=== PATIENT | female | born 1955 | race Caucasian/White ===

== ENCOUNTER 2016-12-28 04:20 | Inpatient (IN) | payer MEDICAID ==
[2016-12-28] VITALS (16 sets, daily range): BP systolic 96–149; BP diastolic 60–94; PULSE 99–124; RESP 16–20; TEMP 97.8–100.9; O2SAT 97–100
[~2016-12-28] VITALS: Ht 160 cm; Wt 44.4 kg
[~2016-12-28 04:20] MED LIST: GUAI100S5 PO; LORA-392 PO; NALOXONE HCL 0.4 MG/ML AMP IV PUSH PRN; SODIUM CHLORIDE 0.9% FLUSH 10 ML FLUSH IV FLUSH PRN; VENTAER INH; ZOFR4TAB3 SL
[2016-12-28] MEDS: SODIUM CHLOR 0.9% 1000 ML INJ 1,000 ML IV SCH ×3 (04:45→23:32)
[2016-12-28] MEDS ORDERED: ATOR10TA15 PO (06:21)
[2016-12-28 08:51] LABS: AUTOMATED NEUTROPHIL # 3.1 TH/MM3 (1.8-7.7); BASOPHIL % 0.6 % (0.0-2.0); EOSINOPHIL # 0.1 TH/MM3 (0-0.4); EOSINOPHIL % 1.9 % (0.0-4.0); LYMPH % 33.8 % (9.0-44.0); LYMPHOCYTE # 1.9 TH/MM3 (1.0-4.8); MEAN CELL VOLUME 94.3 FL (80.0-100.0); MEAN CORPUSCULAR HEMOGLOBIN 31.8 PG (27.0-34.0); MEAN CORPUSCULAR HGB CONC 33.7 % (32.0-36.0); MONO % 6.9 % (0.0-8.0); NEUT % 56.8 % (16.0-70.0); PLATELET COUNT 86 TH/MM3 (150-450); RED BLOOD COUNT 2.09 MIL/MM3 (4.00-5.30); RED CELL DISTRIBUTION WIDTH 12.8 % (11.6-17.2); WHITE BLOOD COUNT 5.5 TH/MM3 (4.0-11.0)
[2016-12-28 08:52] LABS: HEMO FLAGS AUTO DIFF
[2016-12-28 08:55] LABS: HEMATOCRIT 19.7 % (35.0-46.0)
[2016-12-28] MEDS: SODIUM CHLORIDE 0.9% FLUSH 10 ML FLUSH IV FLUSH SCH ×2 (09:00→21:27)
[2016-12-28 09:13] LABS: PLATELET ESTIMATE SMEAR LOW (NORMAL); PLATELET MORPHOLOGY NORMAL (NORMAL); SCAN/DIFF AUTO DIFF CONFIRMED
[2016-12-28] MEDS ORDERED: SODIUM CHLOR 0.9% 250 ML INJ 250 ML IV ONE (12:00)
[2016-12-28] MEDS: diphenhydrAMINE HCL 25 MG CAP PO PRN ×2 (13:17→17:39)
[2016-12-28] MEDS: ACETAMINOPHEN 325 MG TAB PO PRN ×2 (13:17→17:39)
--- NOTE | 2016-12-28 14:59 | HHI.HP ---
[facility] Miguel Bangura D.O. Admission Diagnosis Diagnoses: Chief Complaint: nose bleed Travel History International Travel<30 Days: No Contact w/Intl Traveler <30 Da: No Traveled to Known Affected Are: No History of Present Illness Patient seen in [place] ED for 3 days of epistaxis. SHe had the nose packed but continued to bleed and became light headed and dizzy. She became hypotensive and tachycardic and was admitted to the hospital. She had been coughing and had rhinorrhea for two weeks after her daughter with whom she lives also had a virus. She has over 4o pack years of tobacco. She also admits taking Aspirin/bc powders in large quantities due to severe joint pain. She was admitted to the hospital for further evaluation. Review of Systems Constitutional: DENIES: Diaphoretic episodes, Fatigue, Fever, Weight gain, Weight loss, Chills, Dizziness, Change in appetite, Night Sweats Endocrine: DENIES: Abnorml menstrual pattern, Heat/cold intolerance, Polydipsia , Polyuria, Polyphagia Eyes: DENIES: Blurred vision, Diplopia, Eye inflammation, Eye pain, Vision loss , Photosensitivity, Double Vision Ears, nose, mouth, throat: COMPLAINS OF: Epistaxis, DENIES: Tinnitus, Hearing loss, Vertigo, Nasal discharge, Oral lesions, Throat pain, Hoarseness, Ear Pain , Running Nose, Sinus Pain, Toothache, Odynophagia Respiratory: COMPLAINS OF: Cough Cardiovascular: DENIES: Chest pain, Palpitations, Syncope, Dyspnea on Exertion , PND, Lower Extremity Edema, Orthopnea, Claudication Gastrointestinal: DENIES: Abdominal pain, Black stools, Bloody stools, Constipation, Diarrhea, Nausea, Vomiting, Difficulty Swallowing, Anorexia Genitourinary: DENIES: Abnormal vaginal bleeding, Dysmenorrhea, Dyspareunia, Sexual dysfunction, Urinary frequency, Urinary incontinence, Urgency, Hematuria , Dysuria, Nocturia, Vaginal discharge Musculoskeletal: COMPLAINS OF: Joint pain, DENIES: Muscle aches, Stiffness, Back pain, Neck pain Integumentary: DENIES: Abnormal pigmentation, Pruritus, Rash, Nail changes, Breast masses, Breast skin changes, Nipple discharge Hematologic/lymphatic: DENIES: Bruising, Lymphadenopathy Immunologic/allergic: DENIES: Eczema, Urticaria Neurologic: DENIES: Abnormal gait, Headache, Localized weakness, Paresthesias, Seizures, Speech Problems, Tremor, Poor Balance Psychiatric: DENIES: Anxiety, Confusion, Mood changes, Depression, Hallucinations, Agitation, Suicidal Ideation, Homicidal Ideation, Delusions Past Family Social History Past Medical History copd hyperlipidemia Past Surgical History none Reported Medications reviewed in the EMR, also BC powders "all day" Allergies: Coded Allergies: No Known Allergies (Unverified , 12/28/16) Active Ordered Medications reviewed in the emr Family History Father from [place] in his 70's mom had lung ca and htn Social History tobacco 30 years at at least a ppd occ etoh Physical Exam Vital Signs Vital Signs Date Time Temp Pulse Resp B/P (MAP) Pulse Ox O2 Delivery O2 Flow Rate FiO2 12/28/16 14:37 99.9 100 18 100/72 100 12/28/16 14:07 99.0 107 18 99/65 98 12/28/16 13:52 98.9 119 18 98/63 99 12/28/16 13:37 98.2 119 18 100/60 12/28/16 08:32 110 12/28/16 08:00 99.3 116 18 102/73 (83) 97 12/28/16 05:00 110 12/28/16 05:00 97.8 124 18 96/66 (76) 100 Physical Exam GENERAL: This is a well-nourished, well-developed patient, in no apparent distress. SKIN: No rashes, there are scattered ecchymoses, no lesions. Cool and dry. HEAD: Atraumatic. Normocephalic. No temporal or scalp tenderness. EYES: Pupils equal round and reactive. Extraocular motions intact. No scleral icterus. No injection or drainage. ENT: right nares packed, Nose with dried bleeding, no purulent drainage or septal hematoma. Throat without erythema, tonsillar hypertrophy or exudate. Uvula midline. Airway patent. NECK: Trachea midline. No JVD or lymphadenopathy. Supple, nontender, no meningeal signs. CARDIOVASCULAR: Regular rate and rhythm without murmurs, gallops, or rubs. RESPIRATORY: Clear to auscultation. Breath sounds equal bilaterally. No wheezes , rales, or rhonchi. GASTROINTESTINAL: Abdomen soft, non-tender, nondistended. No hepato-splenomegaly , or palpable masses. No guarding. MUSCULOSKELETAL: Extremities without clubbing, cyanosis, or edema. No joint tenderness, effusion, or edema noted. No calf tenderness. Negative Homans sign bilaterally. NEUROLOGICAL: Awake and alert. Cranial nerves II through XII intact. Motor and sensory grossly within normal limits. Five out of 5 muscle strength in all muscle groups. Normal speech. Laboratory Laboratory Tests Test 12/28/16 08:00 White Blood Count 5.5 Red Blood Count 2.09 Hemoglobin 6.6 Hematocrit 19.7 Mean Corpuscular Volume 94.3 Mean Corpuscular Hemoglobin 31.8 Mean Corpuscular Hemoglobin Concent 33.7 Red Cell Distribution Width 12.8 Platelet Count 86 Mean Platelet Volume 9.2 Neutrophils (%) (Auto) 56.8 Lymphocytes (%) (Auto) 33.8 Monocytes (%) (Auto) 6.9 Eosinophils (%) (Auto) 1.9 Basophils (%) (Auto) 0.6 Neutrophils # (Auto) 3.1 Lymphocytes # (Auto) 1.9 Monocytes # (Auto) 0.4 Eosinophils # (Auto) 0.1 Basophils # (Auto) 0.0 CBC Comment AUTO DIFF Differential Comment AUTO DIFF CONFIRMED Platelet Estimate LOW Platelet Morphology Comment NORMAL Result Diagram: 12/28/16 0800 Imaging 12/27 cxray, abd xray wnl on my review Course transferred form [place] ed Caprini VTE Risk Assessment Caprini VTE Risk Assessment: Mod/High Risk (score >= 2) VTE Pharm Contraindication: Hemorrhage Caprini Risk Assessment Model Point Value = 1 Point Value = 2 Point Value = 3 Point Value = 5 Age 41-60 Minor surgery BMI > 25 kg/m2 Swollen legs Varicose veins or History of unexplained or recurrent spontaneous Oral contraceptives or hormone replacement Sepsis (< 1 month) Serious lung disease, including pneumonia (< 1 month) Abnormal pulmonary function Acute myocardial infarction Congestive heart failure (< 1 month) History of inflammatory bowel disease Medical patient at bed rest Age 61-74 Arthroscopic surgery Major open surgery (> 45 min) Laparoscopic surgery (> 45 min) Malignancy Confined to bed (> 72 hours) Immobilizing plaster cast Central venous access Age >= 75 History of VTE Family history of VTE Factor V Leiden Prothrombin [id number] Lupus anticoagulant Anticardiolipin antibodies Elevated serum homocysteine Heparin-induced thrombocytopenia Other congenital or acquired thrombophilia Stroke (< 1 month) Elective arthroplasty Hip, pelvis, or leg fracture Acute spinal cord injury (< 1 month) Prophylaxis Regimen Total Risk Factor Score Risk Level Prophylaxis Regimen 0-1 Low Early ambulation 2 Moderate Order ONE of the following: *Sequential Compression Device (SCD) *Heparin 5000 units SQ BID 3-4 Higher Order ONE of the following medications: *Heparin 5000 units SQ TID *Enoxaparin/Lovenox 40 mg SQ daily (WT < 150 kg, CrCl > 30 mL/min) *Enoxaparin/Lovenox 30 mg SQ daily (WT < 150 kg, CrCl > 10-29 mL/min) *Enoxaparin/Lovenox 30 mg SQ BID (WT < 150 kg, CrCl > 30 mL/min) AND/OR *Sequential Compression Device (SCD) 5 or more Highest Order ONE of the following medications: *Heparin 5000 units SQ TID (Preferred with Epidurals) *Enoxaparin/Lovenox 40 mg SQ daily (WT < 150 kg, CrCl > 30 mL/min) *Enoxaparin/Lovenox 30 mg SQ daily (WT < 150 kg, CrCl > 10-29 mL/min) *Enoxaparin/Lovenox 30 mg SQ BID (WT < 150 kg, CrCl > 30 mL/min) AND *Sequential Compression Device (SCD) Assessment and Plan Problem List: (1) Epistaxis ICD Code: R04.0 - Epistaxis Plan: Acute likely posterior bleed, may be due to large aspirin doses coags normal ent eval pending, case discussed with Dr. Rodriguez and Family and weed control inspector NPO (2) Anemia ICD Code: D64.9 - Anemia, unspecified Plan: due to acute blood loss transfuse for HG 6.6 with tachycardia, and hypotension telemetry add ppi since on nsaids in large doses Code Status full code Physician Certification 2 Midnight Certification Type: Admission for Inpatient Services Order for Inpatient Services The services are ordered in accordance with Medicare regulations or non- Medicare payer requirements, as applicable. In the case of services not specified as inpatient-only, they are appropriately provided as inpatient services in accordance with the 2-midnight benchmark. Estimated LOS (days): 3 3 days is the estimated time the patient will need to remain in the hospital, assuming treatment plan goals are met and no additional complications. Post-Hospital Plan: Donna Barker MD Dec 28, 2016 14:59
[2016-12-28] MEDS ORDERED: LORazepam 0.5 MG TAB PO PRN (15:00)
[2016-12-28] MEDS ORDERED: ALBUTEROL SULFATE 90 MCG/ACT HFA 8 GM INHALER INH PRN (15:00)
[2016-12-28] MEDS ORDERED: ONDANSETRON ODT 4 MG TAB SL PRN (15:00)
[2016-12-28] MEDS ORDERED: PANTOPRAZOLE SODIUM 40 MG VIAL IV PUSH SCH (15:00)
--- NOTE | 2016-12-28 19:35 | MB ---
cc: FRANCK RODRIGUEZ MD DATE OF CONSULTATION 12/28/2016 CHIEF COMPLAINT Epistaxis. HISTORY OF PRESENT ILLNESS The patient is a very pleasant 51-year-old female who was seen in [place] ED for three days of epistaxis but she continued to bleed and became hypotensive and tachycardiac admitted to hospital. She has had a recent upper respiratory infection. She has a heavy tobacco history as well. The patient has a 40 year smoking history. The patient's family notes that she takes high-dose BC powder every day and also drinks large amounts of beer as well. PHYSICAL EXAMINATION GENERAL: Examination was consistent with the patient currently stable. She had recently gotten 50 of Benadryl so she is sedated. HEENT: Nasal balloon, Rhino rocket is in place on the patient's right side. There is no active bleeding on either side of the nose. Oropharynx is completely dry. The patient is currently getting a second unit of blood after her H&H were decreased overnight, roughly 619. ASSESSMENT Epistaxis. There has been no active bleeding at all since the patient had a nose pack this morning. However the H&H were 6.6 and 19.7 this morning for which she has received two units of blood. The patient will likely have blood rechecked tomorrow. I recommend leaving the nasal pack in place for one week from today at least because of the severity of bleeding. Also recommend alcohol withdrawal monitoring because of her heavy alcohol history. Furthermore recommend the patient having good control of her blood pressure ideally in 120s systolic to minimize any further nosebleeds. The patient is currently getting worked up for possible GI bleed as well. Because of her systemic anticoagulation, history of alcohol and BC Powder ____ six tablets a day for years. Discussed this all with the patient's family. With the packing in place already if the patient gets any further brisk bleeding she may be a candidate for vascular embolization because of her coagulopathy state and the large pack already in place. Thank you for this consultation. Franck Rodriguez MD CCP/KK /6:54 PM /7:14 PM
[2016-12-28] MEDS ORDERED: ATORVASTATIN 10 MG TAB PO SCH (21:00)
--- NOTE | 2016-12-28 22:07 | MB ---
cc: GITA ADAMSON M.D. DATE OF CONSULTATION 12/28/2016 DATE OF [address] Jasso. REASON FOR REFERRAL Possible GI bleed, anemia. HISTORY OF THE PRESENT ILLNESS This is a pleasant 61-year-old lady who has been having epistaxis with nosebleed for the last 3 days, came to the emergency room in [place], found to have severe anemia. She was complaining of lightheaded and dizziness. She was also vomiting blood and she was admitted to the hospital because of that. Apparently the patient uses large amount of aspirin BC powder for headache and arthritis. The patient did not have any bleeding in the last 24 hours since her nose was packed. She denied any significant GI symptoms. She never had any GI workup including no colonoscopies. PAST MEDICAL HISTORY Significant for: 1. Hyperlipidemia. 2. COPD. SURGERIES None. ALLERGIES NO KNOWN DRUG ALLERGIES. FAMILY HISTORY Significant for hypertension and lung cancer. SOCIAL HISTORY Positive for significant amount of tobacco use. Rare alcohol. REVIEW OF SYSTEMS All 12-point negative except HPI. PHYSICAL EXAMINATION GENERAL: Alert, oriented, in no acute distress. VITAL SIGNS: Stable. HEENT: Pupils are round and reactive to light. The patient has a nose which was packed for bleeding. NECK: Supple. ABDOMEN: Soft, nondistended. Positive bowel sounds. CARDIOVASCULAR: Regular rate and rhythm. No murmur or gallop. EXTREMITIES: No edema, clubbing or cyanosis. NEUROLOGIC: Intact. PSYCHOLOGIC: Appropriate. LABORATORY DATA White count 5.5, hemoglobin 6.6, platelet 86. Liver function tests are normal. Albumin 3.0. ASSESSMENT/PLAN 1. A 61-year-old lady with significant anemia, nosebleed but also has nausea and vomiting and hematemesis, could be from swallowing blood but with severe anemia and history of using NSAIDs recommend doing an upper endoscopy. This will be done tomorrow. The patient is agreeable to have that done. The patient was given 2 units of packed red blood cells. We will monitor her hemoglobin and we will see how she is doing. 2. The patient will need colonoscopy as an outpatient for screening purposes. MD CORNELIA Rodrigez/SANTIAGO /9:39 PM /9:53 PM
[2016-12-29] VITALS: BP 105/83; PULSE 86; RESP 18; TEMP 97; O2SAT 96
[2016-12-29 02:23] LABS: AUTOMATED NEUTROPHIL # 5.4 TH/MM3 (1.8-7.7); BASOPHIL # 0.1 TH/MM3 (0-0.2); BASOPHIL % 0.6 % (0.0-2.0); EOSINOPHIL # 0.2 TH/MM3 (0-0.4); EOSINOPHIL % 2.7 % (0.0-4.0); HEMATOCRIT 28.3 % (35.0-46.0); LYMPHOCYTE # 2.2 TH/MM3 (1.0-4.8); MEAN CELL VOLUME 86.1 FL (80.0-100.0); MEAN CORPUSCULAR HEMOGLOBIN 29.8 PG (27.0-34.0); MEAN CORPUSCULAR HGB CONC 34.6 % (32.0-36.0); MONO % 8.1 % (0.0-8.0); NEUT % 62.6 % (16.0-70.0); PLATELET COUNT 79 TH/MM3 (150-450); RED BLOOD COUNT 3.29 MIL/MM3 (4.00-5.30); RED CELL DISTRIBUTION WIDTH 18.6 % (11.6-17.2); WHITE BLOOD COUNT 8.6 TH/MM3 (4.0-11.0)
[2016-12-29 02:24] LABS: HEMO FLAGS DIFF FINAL
[2016-12-29] MEDS ORDERED: PANTOPRAZOLE SODIUM 40 MG VIAL IV PUSH SCH (03:00)
[2016-12-29 04:00] VITALS: BP 136/78; PULSE 117; RESP 16; TEMP 101; O2SAT 98
[2016-12-29] MEDS: SODIUM CHLOR 0.9% 1000 ML INJ 1,000 ML IV SCH (05:30)
[2016-12-29 07:45] VITALS: BP 151/96; PULSE 115; RESP 20; TEMP 98.8; O2SAT 96
[2016-12-29] MEDS ORDERED: PROPOFOL 200 MG/20 ML AMP IV ONE (08:20)
[2016-12-29] MEDS ORDERED: LACTATED RINGER'S 1000 ML INJ 1,000 ML ONE ×2 (08:36→08:38)
[2016-12-29] MEDS: SODIUM CHLORIDE 0.9% FLUSH 10 ML FLUSH IV FLUSH SCH (08:38)
--- NOTE | 2016-12-29 08:39 | PD.PROCEDR ---
GI Procedure REFERRING PHYSICIAN OLVIN PROCEDURE PERFORMED EGD with biopsy INDICATION FOR PROCEDURE anemia, hematemesis PROCEDURE: The procedure, risks and benefits were discussed with Ms. Li and informed consent was obtained. Anesthesia sedated her with Diprivan. She was placed in the left lateral decubitus position. EGD: The Pentax videoscope was introduced through the oropharynx and advanced to the second portion of the duodenum under direct visualization. Retroflexion was performed in the stomach. FINDINGS: ESOPHAGUS: this was normal STOMACH: small hiatal hernia antral ulcer, clean base, biopsied otherwise normal DUODENUM: this was normal ESTIMATED BLOOD LOSS: none SPECIMENS REMOVED: antral biopsy COMPLICATIONS: none IMPRESSION: hiatal hernia antral ulcer PLAN: await biopsy avoid NSAIDs continue pantoprazole 40mg bid EGD in 2 months supportive care Manan Rose MD Dec 29, 2016 08:39
[2016-12-29] MEDS ORDERED: INFLUENZA VIRUS VACCINE (QUADRIVALENT) 0.5 ML SYR IM ONE (09:00)
[2016-12-29] MEDS ORDERED: PNEUMOCOCCAL POLYVALENT INJ 25 MCG/0.5 ML SYR IM ONE (09:00)
[2016-12-29] MEDS ORDERED: DO NOT ADM ANY ANTICOAGULANT DRUGS PRN (09:30)
[2016-12-29 09:35] VITALS: BP 151/96; PULSE 115; RESP 18; TEMP 98.8; O2SAT 96
[2016-12-29 10:25] LABS: ANION GAP 10 MEQ/L (5-15); BICARBONATE 23.3 MEQ/L (21.0-32.0); BLOOD UREA NITROGEN 6 MG/DL (7-18); CHLORIDE 108 MEQ/L (98-107); POTASSIUM 3.3 MEQ/L (3.5-5.1); SODIUM (NA) 141 MEQ/L (136-145)
[2016-12-29 10:28] LABS: ALT (GPT) 12 U/L (10-53); AST (GOT) 15 U/L (15-37); GLOMERULAR FILTRATION RATE 203 ML/MIN (>89)
[2016-12-29 10:29] LABS: TOTAL BILIRUBIN ADULT 0.6 MG/DL (0.2-1.0)
[2016-12-29 10:31] LABS: ALKALINE PHOSPHATASE 35 U/L (45-117)
[2016-12-29] MEDS ORDERED: PANT40TA3 PO (12:25)
--- NOTE | 2016-12-29 12:26 | HHI.PR ---
Subjective Remarks patient seen and evaluated in follow-up for epistaxis and for GI bleeding. Now known to have gastric ulcer. Hemoglobin 9.8 after 2 units packed red blood cells. Care plan discussed with ENT Objective Vitals Vital Signs Date Time Temp Pulse Resp B/P (MAP) Pulse Ox O2 Delivery O2 Flow Rate FiO2 12/29/16 09:35 98.8 115 18 151/96 (114) 96 12/29/16 08:50 114 18 116/79 (91) 98 12/29/16 08:30 98.4 110 20 117/76 (90) 95 12/29/16 07:45 98.8 115 20 151/96 (114) 96 12/29/16 04:00 101.0 117 16 136/78 (97) 98 12/29/16 00:00 97.0 86 18 105/83 (90) 96 12/28/16 20:00 105 12/28/16 20:00 100.9 101 16 149/94 (112) 98 12/28/16 18:21 98.5 99 20 141/89 (106) 100 12/28/16 18:20 99.0 100 18 140/85 100 12/28/16 17:20 99.9 111 18 128/80 100 12/28/16 16:20 98.8 111 18 125/84 100 12/28/16 16:05 98.5 103 18 120/70 100 12/28/16 15:37 98.7 107 18 120/80 100 12/28/16 15:07 99.9 113 18 113/73 100 12/28/16 14:37 99.9 100 18 100/72 100 12/28/16 14:07 99.0 107 18 99/65 98 12/28/16 13:52 98.9 119 18 98/63 99 12/28/16 13:37 98.2 119 18 100/60 I/O 12/28/16 12/28/16 12/28/16 12/29/16 12/29/16 12/29/16 07:00 15:00 23:00 07:00 15:00 23:00 Intake Total 120 ml 700 ml 1420 ml 1200 ml Output Total 1 ml Balance 120 ml 699 ml 1420 ml 1200 ml Intake Oral 0 ml 420 ml IV Total 120 ml 1000 ml 1000 ml Packed Cells 600 ml Blood Product IV Normal Saline Flush 100 ml Other 200 ml Output Stool Total 1 ml # Voids 4 2 7 # Bowel Movements 0 4 Result Diagram: 12/29/16 0145 12/29/16 0915 Objective Remarks Right nares packed GENERAL: This is a well-nourished, well-developed patient, in no apparent distress. CARDIOVASCULAR: Regular rate and rhythm without murmurs, gallops, or rubs. RESPIRATORY: Clear to auscultation. Breath sounds equal bilaterally. No wheezes , rales, or rhonchi. GASTROINTESTINAL: Abdomen soft, non-tender, nondistended. Normal active bowel sounds MUSCULOSKELETAL: Extremities without clubbing, cyanosis, or edema. NEURO: Alert & Oriented x4 to person, place, time, situation. Moves all ext x4 Procedures Panendoscopy: Gastric ulcer A/P Problem List: (1) Epistaxis ICD Code: R04.0 - Epistaxis Plan: Acute likely posterior bleed, may be due to large aspirin doses coags normal ent eval appreciated, Continue packing for one week (2) Anemia ICD Code: D64.9 - Anemia, unspecified Plan: due to acute blood loss Status post transfusion, heart rate improved (3) Gastric ulcer ICD Code: K25.9 - Gastric ulcer, unspecified as acute or chronic, without hemorrhage or perforation Plan: Proton pump inhibitor twice a day, repeat EGD in 2 months Discharge Planning d/c home regular diet activity as tolerated Donna Tamayo MD Dec 29, 2016 12:25
[2016-12-29 12:56] VITALS: BP 121/84; PULSE 111; RESP 16; TEMP 97.4; O2SAT 96
== END 2016-12-29 13:37 | disposition home or self-care (01) | DRG 811 ==
LOC: PHEDDLT 04:20 → PH3A 04:30 → OBSVTOIN 14:59
PROVIDERS: ADMIT Hospitalist; ATTEND Hospitalist
PROC: 2Y41X5Z Packing of Nasal Region using Packing Material (ICD-10-PCS; 2016-12-29)
PROC: 30253N1 (ICD-10-PCS; 2016-12-29)
PROC: 0DB68ZX Excision of Stomach, Via Natural or Artificial Opening Endoscopic, Diagnostic (ICD-10-PCS; principal; 2016-12-29 08:00)
DX: D62 Acute posthemorrhagic anemia (principal); K25.4 Chronic or unspecified gastric ulcer with hemorrhage; I95.9 Hypotension, unspecified; R04.0 Epistaxis; R00.0 Tachycardia, unspecified; E78.5 Hyperlipidemia, unspecified; J44.9 Chronic obstructive pulmonary disease, unspecified; K44.9 Diaphragmatic hernia without obstruction or gangrene; M19.90 Unspecified osteoarthritis, unspecified site; Z72.0 Tobacco use
CPT/HCPCS: 36430; 71020; 74000; 80048; 80053; 80307; 81001; 85025; 85027; 85610; 85730; 86850; 86900; 86901; 86920; 87077; 87086; 87186; 88305; 88312; 99285; C9113; J7030; J7050; J7120; P9016